=== PATIENT | female | born 1975 | race Two or more races ===

== ENCOUNTER 2023-10-15 21:26 | Emergency (ER) | payer MEDICAID, OTHER ==
[~2023-10-15] VITALS: Ht 165.1 cm; Wt 91.0 kg
[2023-10-15 21:50] VITALS: BP 125/84; PULSE 100; RESP 20; TEMP 98.4; O2SAT 98
[2023-10-16] MEDS: KETOROLAC TROMETH 60MG/2ML VIAL IM ONE (01:17)
[2023-10-16] MEDS: SILVER SULFADIAZINE 1 % TOPICAL CREAM 50GM TOP ONE (01:18)
[2023-10-16] MEDS: OXYCODONE W/ ACETAMINOPHEN 5/325MG TABLET PO ONE (01:18)
[2023-10-16] MEDS ORDERED: IBU600T PO (01:30)
== END 2023-10-16 01:36 | disposition home or self-care (01) ==
LOC: ER 21:26
DX: T23.292A Burn of second degree of multiple sites of left wrist and hand, initial encounter (principal); T31.0 Burns involving less than 10% of body surface; X10.2XXA Contact with fats and cooking oils, initial encounter; Y93.G3 Activity, cooking and baking; Y92.89 Other specified places as the place of occurrence of the external cause; Y99.8 Other external cause status
CPT/HCPCS: 16020; 96372; 99283; J1885